=== PATIENT | female | born 1950 | race Caucasian/White ===

== ENCOUNTER → 2017-07-07 | Day surgery (SDC) | payer OTHER, MEDICARE ==
[2017-06-30 11:54] VITALS: Ht 158.8 cm; Wt 75.9 kg
[~2017-07-07] VITALS: Ht 158.8 cm; Wt 75.9 kg
[~2017-07-07] MED LIST: ASPI81CH2 PO; CLON0.5T3 PO; EpHEDrine SULFATE 50MG/5ML SYR ONE; FLUO40CA8 PO; LIDOCAINE HCL 2% 2 ML VIAL (20MG/ML) ONE; PHENYLEPHRINE HCL INJ 10 MG/ML VIAL ONE; PROPOFOL IV EMULSION 10 MG/ML 20 ML VIAL ONE; SODIUM CHLORIDE 0.9% 500ML 500 ML IV ONE; TPRSR/50 PO; ZOLP5TAB PO
--- NOTE | 2017-07-07 08:33 | Endo History and Physical ---
History & Physical Date of Service: July 07, 2017. Chief Complaint: History of polyps Referring Physician: Dr. Brcue Nicole III History of Present Illness Surveillance for colon polyps Past Surgical History Hx Cardiac Surgery: No Hx Internal Defibrillator: No Hx Pacemaker: Yes (MEDTRONIC-DUAL CHAMBER, PACE ON DEMAND-BY DR. MORALES) Hx Abdominal Surgery: Yes (LAPORATOMY FOR FIBROIDS) Hx of Implantable Prosthesis: No Hx Cancer Surgery: No Hx Thoracic Surgery: No Hx Orthopedic: No Hx Urinary Tract Surgery: No Social History Smoking Status: Former Smoker Hx Substance Use: No Hx Alcohol Use: Yes (1-2 GLASSES OF WINE A WEEK) Allergies Coded Allergies: No Known Allergies (Verified , 07/07/17) Current Medications Reported Home Medications Medications Dose Route/Sig Max Daily Dose Days Date Category Aspirin 81 Mg Chw 1 Tab PO HS 30 06/30/17 Reported Metoprolol Succinate ER (Metoprolol Succinate) 50 Mg Tabcr 1 Tab PO QPM 06/30/17 Reported Prozac (Fluoxetine HCl) 40 Mg Cap 40 Mg PO HS 06/30/17 Reported Klonopin (Clonazepam) 0.5 Mg Tab 1 Tab PO HS PRN 30 01/21/15 Reported Ambien (Zolpidem Tartrate) 5 Mg Tab 1 Tab PO HS PRN 30 01/21/15 Reported Vital Signs Weight (Kilograms): 75.91 Height (Feet): 5 Height (Inches): 2.5 Date Time Temp Pulse Resp B/P (MAP) Pulse Ox O2 Delivery O2 Flow Rate FiO2 07/07/17 08:19 36.7 56 18 145/77 (99) 97 Room Air Physical Exam General Appearance: no apparent distress Respiratory/Chest: Auscultation: breath sounds normal Cardiovascular: Heart Auscultation: RRR Abdomen: Inspection & Palpation: soft, non-distended Assessment and Plan Stable for colonoscopy
--- NOTE | 2017-07-07 09:30 | Discharge Instructions ---
Endoscopy Patient Instructions Date / Procedure(s) Performed July 07, 2017. Colonoscopy Allergy Information Coded Allergies: No Known Allergies (Verified , 07/07/17) Discharge Date / Findings July 07, 2017. Diverticulosis and polyps Medication Instructions Avoid NSAIDs for 1 week Provider Instructions Activity Restrictions - No exercising or heavy lifting for 24 hours. - Do not drink alcohol the day of the procedure. - Do not drive a car or operate machinery until the day after the procedure. - Do not make any important decisions or sign important papers in 24 hours after the procedure. Following Day: - Return to full activity which may include returning to work/school. Diet Start your diet with liquids and light foods (jello, soup, juice, toast). Then eat your usual diet if not nauseated. Treatment For Common After Affects For mild abdominal pain, bloating, or excessive gas: - Rest - Eat lightly - Lie on right side Follow-Up Information Follow-up with Dr. Bruce Nicole III as scheduled Anesthesia Information What You Should Know You have had a procedure that required some medicine to reduce anxiety and discomfort. This treatment is called moderate sedation. After receiving the treatment, you may be sleepy, but you will be able to breathe on your own. The effects of the treatment may last for several hours. Follow these instructions along with Activity/Diet recommendations noted above: * Do NOT do anything where dizziness or clumsiness would be dangerous. * Rest quietly at home today, then you can be up and about tomorrow. * Have a responsible person stay with you the rest of today. * You may have had an I.V. today. If so, you may take the dressing off later today. Recommendations Call your doctor if: * Trouble breathing * Continuous vomiting for more than 24 hours * Temperature above 101 degrees * Severe abdominal pain or bloating * Pain not relieved by pain medicine ordered * There is increased drainage or redness from any incision * A large amount of rectal bleeding greater than 2-3 tablespoons. (If you had a polyp/s removed or have hemorrhoids, a small amount of blood - from the rectum is to be expected.) * You have any unanswered questions or concerns. IN THE EVENT OF A SERIOUS EMERGENCY, GO TO THE NEAREST EMERGENCY ROOM Your discharge instructions were prepared by provider Jay Collins. Patient Instructions Signature Page Aleja Tomlin Patient (or Guardian) Signature/Date: I have read and understand the instructions given to me by my caregivers. Caregiver/RN/Doctor Signature/Date: The above-named patient and/or guardian has received patient instructions on this date. + Original Patient Signature Page (only) stays with chart. Please make copy for patient.
--- NOTE | 2017-07-07 09:30 | GI REPORT ---
Patient Name: Aleja Tomlin Procedure Date: 07/07/2017 8:49 AM Date of : 1950 Admit Type: Outpatient Age: 67 Gender: Female Attending MD: Jay Collins MD Procedure: Colonoscopy Providers: Jay Collins MD Referring MD: Bruce Nicole Indications: High risk colon cancer surveillance: Personal history of colonic polyps Medicines: Monitored Anesthesia Care Complications: No immediate complications. Estimated Blood Loss: Estimated blood loss: none. Procedure: Pre-Anesthesia Assessment: - Prior to the procedure, a History and Physical was performed, and patient medications and allergies were reviewed. The patient is competent. The risks and benefits of the procedure and the sedation options and risks were discussed with the patient. All questions were answered and informed consent was obtained. Patient identification and proposed procedure were verified by the physician and the nurse in the procedure room. Mental Status Examination: alert and oriented. Airway Examination: normal oropharyngeal airway and neck mobility. Respiratory Examination: clear to auscultation. CV Examination: normal. ASA Grade Assessment: II - A patient with mild systemic disease. After reviewing the risks and benefits, the patient was deemed in satisfactory condition to undergo the procedure. The anesthesia plan was to use monitored anesthesia care (MAC). Immediately prior to administration of medications, the patient was re-assessed for adequacy to receive sedatives. The heart rate, respiratory rate, oxygen saturations, blood pressure, adequacy of pulmonary ventilation, and response to care were monitored throughout the procedure. The physical status of the patient was re-assessed after the procedure. After I obtained informed consent, the scope was passed under direct vision. Throughout the procedure, the patient's blood pressure, pulse, and oxygen saturations were monitored continuously. The scope was introduced through the anus and advanced to the terminal ileum. The colonoscopy was performed without difficulty. The patient tolerated the procedure well. The quality of the bowel preparation was good. The terminal ileum, ileocecal valve, appendiceal orifice, and rectum were photographed. Findings: The perianal and digital rectal examinations were normal. The terminal ileum appeared normal. A 5 mm polyp was found in the ascending colon. The polyp was sessile. The polyp was removed with a cold snare. Resection and retrieval were complete. Verification of patient identification for the specimen was done by the physician and nurse using the patient's name and date. A 15 mm polyp was found in the transverse colon. The polyp was sessile. The polyp was removed with a saline injection-lift technique using a hot snare. Resection and retrieval were complete. A 5 mm polyp was found in the transverse colon. The polyp was sessile. The polyp was removed with a cold snare. Resection and retrieval were complete. Two sessile polyps were found in the sigmoid colon. The polyps were 5 mm in size. These polyps were removed with a cold snare. Resection and retrieval were complete. Scattered small and large-mouthed diverticula were found in the entire colon. The retroflexed view of the distal rectum and anal verge was normal and showed no anal or rectal abnormalities. Impression: - The examined portion of the ileum was normal. - One 5 mm polyp in the ascending colon, removed with a cold snare. Resected and retrieved. - One 15 mm polyp in the transverse colon, removed using injection-lift and a hot snare. Resected and retrieved. - One 5 mm polyp in the transverse colon, removed with a cold snare. Resected and retrieved. - Two 5 mm polyps in the sigmoid colon, removed with a cold snare. Resected and retrieved. - Diverticulosis in the entire examined colon. - The distal rectum and anal verge are normal on retroflexion view. Recommendation: - Discharge patient to home. - Await pathology results. - Repeat colonoscopy for surveillance based on pathology results. - No aspirin, ibuprofen, naproxen, or other non-steroidal anti-inflammatory drugs for 1 week after polyp removal. - Return to referring physician. Jay Collins MD 07/07/2017 9:29:47 AM This report has been signed electronically. Note Initiated On: 07/07/2017 8:49 AM Number of Addenda: 0 I attest to the content of the Intraoperative Record and orders documented therein, exceptions below {[id number]}
--- NOTE | 2017-07-07 09:54 | Anesthesiology Progress Note ---
Anesthesia Post Op Note Date & Time July 07, 2017 at 09:53 Vital Signs Pain Intensity: 0 Vital Signs Past 12 Hours Date Time Temp Pulse Resp B/P (MAP) Pulse Ox O2 Delivery O2 Flow Rate FiO2 07/07/17 09:42 51 16 124/79 (94) 96 Room Air 07/07/17 09:27 63 16 100/62 (75) 95 Room Air 07/07/17 08:19 36.7 56 18 145/77 (99) 97 Room Air Notes Mental Status: alert / awake / arousable, participated in evaluation Pt Amnestic to Procedure: Yes Nausea / Vomiting: adequately controlled Pain: adequately controlled Airway Patency, RR, SpO2: stable & adequate BP & HR: stable & adequate Hydration State: stable & adequate Anesthetic Complications: no major complications apparent
[2017-07-07 09:57] VITALS: BP 138/54; PULSE 54; O2SAT 99
== END | disposition home or self-care (01) ==
LOC: C.GI 07:52
PROVIDERS: ATTEND Student in an Organized Health Care Education/Training Program
DX: Z12.11 Encounter for screening for malignant neoplasm of colon (principal); F41.9 Anxiety disorder, unspecified; F32.9 Major depressive disorder, single episode, unspecified; Z86.010 Personal history of colon polyps; Z87.891 Personal history of nicotine dependence; Z79.82 Long term (current) use of aspirin; Z95.0 Presence of cardiac pacemaker; D12.2 Benign neoplasm of ascending colon; D12.3 Benign neoplasm of transverse colon; D12.5 Benign neoplasm of sigmoid colon; K57.30 Diverticulosis of large intestine without perforation or abscess without bleeding

== ENCOUNTER → 2017-10-04 | Outpatient (CLI) | payer OTHER, MEDICARE ==
[~2017-10-04] MED LIST changes: -CLON0.5T3 PO; +CLON0.5T9 PO; -EpHEDrine SULFATE 50MG/5ML SYR ONE; -LIDOCAINE HCL 2% 2 ML VIAL (20MG/ML) ONE; -PHENYLEPHRINE HCL INJ 10 MG/ML VIAL ONE; -PROPOFOL IV EMULSION 10 MG/ML 20 ML VIAL ONE; -SODIUM CHLORIDE 0.9% 500ML 500 ML IV ONE
--- NOTE | 2017-10-05 05:34 | PAP/PSG TECHNICIAN REPORT ---
[facility] Cryptologic Support Specialist Polysomnogram Report Study name: None Report date: 10/05/2017 Study date: 10/04/2017 Referring Physician: Bruce Evans M.D. Name: MICHELLEPIERRE DOBSON SHAGUFTA Interpreting Physician: Bruce Evans M.D. Date of : 1950 Cryptologic Support Specialist: Slime Adkins RPSGT. Sex: Female Age: 67 StudyType: PSG Weight: 171 lbs Height: 67 years, Height 5' 3" Neck Circum:14inches BMI: 30.29 Medications: Calcium [id number], Clonazepam 1mg, Fluoxetine HCl 40mg, Magnesium, Metoprolol Succinate ER 50mg Zolpidem 10mg, ASA 81mg Patient History Study started on room air with no ETCO2 monitoring in room #8. 67 yr old female here tonight for a diagnostic psg. She has a history of fatigue and snoring.She has had insomnia for years.She has occasional reflux. Her ESS=12/24.Neck circ=14inches. Parameters Monitored NPSG: E1-M2, E2-M1, Fp1-M2, Fp2-M1, F3-M2, F4-M2, F4-M1, C3-M2, C4-M2, C4-M1, O1-M2, O2-M2, O2-M1, T3-M2, T4-M1, P3-M2, P4-M1, CHIN1, CHIN2, HR, EKG, Legs, PFLOW, SNOR, FLOW, CFLOW, Tidal Volume, THOR, ABDO, SpO2, PLTH, CPRESS, ETCO2 Wave, ETCO2, pH Sleep Architecture Sleep Stages Time at Lights Off 9:56:27 PM STAGES Time (min.) TST (%) Time at Lights On 5:21:27 AM Wake 108.0 -- Total Recording Time (TRT) 445.00 min. N1 42.0 12 Total Sleep Period (TSP) 421.0 min. N2 221.0 66 Total Sleep Time (TST) 337.0min. N3 27.0 8 Awake Time 108.0 min. REM 47.0 14 Wake after Sleep Onset 84.0 min. Sleep Efficiency (SE) 76 % Sleep Onset Latency (CAM) 24.0 min. Number of Stage 1 Shifts None Awakenings 28 Stage Changes 135 Number of REM periods 3 REM 47.0 14 REM Latency 273.0 min. NREM 290.0 86 Body Position Analysis Supine Right Left Side Prone Vertical Total Sleep Time (min.) 23.6 337.0 0.0 337.00 0.0 0.0 Total Sleep Time (%) 0% 100% 0% 100 0% N/A% Total Sleep Time REM (min.) 0.0 47.0 0.0 None 0.0 0.0 Total Sleep Time NREM (min.) 0.0 290.0 0.0 None 0.0 0.0 Intermittent Wake (min.) 23.6 84.4 0.0 None 0.0 0.0 Total Sleep Period (%) 0% None None None None None Arousals Myoclonus (PLM) * Events Count Index Events Count Index Spontaneous 40 7 Events Awake (PLMW) 122 67.8 Respiratory 11 2.3 Events Asleep w/ Arousal (PLMA) 48 8.5 PLM 47 9 Events Asleep w/o Arousal (PLMS) 338 60.2 Snoring 7 1 Total Asleep 386 68.7 Total 105 19 Total 508 68 Respiratory Analysis * CA OA MA CH H RERA Total Count 1 0 0 0 20 1 21 Index 0.2 0.0 0.0 0 3.6 0 3.9 Mean Duration 13.4 0.0 0.0 0.00 21.6 42.1 22.1 Longest Duration 13.4 0.0 0.0 0.00 0.0 42.1 47.2 Respiratory Event Summary Total Supine ~Supine Right Left Prone REM NREM Apneas Count 1 N/A 1 1 N/A N/A 0 1 Index 0.2 N/A 0 0.2 N/A N/A 0 0 Hypopneas (4% Desat) Count 20 N/A 20 20 N/A N/A 2 18 Index 3.6 N/A 4 3.6 N/A N/A 2.6 3.7 Apneas & All Hypopneas Count 21 N/A 21 21 N/A N/A 2 19 Index 3.7 N/A 4 4 N/A N/A 2.6 3.9 Respiratory Events (Musician Instrumental+All Hyp+RERA) Count 21 N/A 22 22 N/A N/A 2 19 Index 3.9 N/A 4 3.9 N/A N/A 2.6 4.1 Respiratory Related Arousal Count 11 N/A 13 13 N/A N/A 1 12 Index 2.3 N/A 2 2 N/A N/A 1 2 Snoring Analysis Supine Right Left Prone REM NREM Total Snore duration 7.6 min Snores count N/A 313 N/A N/A 16 297 313 Snore mean duration 1.5 Sec Snores index N/A 56 N/A N/A 20.4 61.4 55.7 TST with snoring (%) 2.2% Desaturation Event Summary: Minimum %SpO2 Event Count Mean/Min/Max Duration(sec.) Desaturation Index % Time In Bed > 90 66 23.1 / 5.3 / 60.0 28.2 31.9 86 - 90 33 21.4 / 5.3 / 48.3 6.6 67.8 81 - 85 0 N/A 0.0 0.4 76 - 80 0 N/A 0.0 0.0 71 - 75 0 N/A 0.0 0.0 66 - 70 0 N/A 0.0 0.0 61 - 65 0 N/A 0.0 0.0 56 - 60 0 N/A 0.0 0.0 51 - 55 0 N/A 0.0 0.0 < 50 0 N/A 0.0 0.0 Total REM NREM Awake <50% 0.0 min. 0.0 min. 0.0 min. 0.0 min. 51 - 60% 0.0 min. 0.0 min. 0.0 min. 0.0 min. 61 - 70% 0.0 min. 0.0 min. 0.0 min. 0.0 min. 71 - 80% 0.0 min. 0.0 min. 0.0 min. 0.0 min. 81 - 90% 299.7 min. 39.2 min. 205.0 min. 55.5 min. 91 - 100% 140.4 min. 7.8 min. 85.0 min. 47.6 min. Average 90 89 90 91 Minimum SpO2 83 83 83 85 Desaturation Event Index 9.8 3.8 6.8 21.1 # Desat. Events below 89% 48 3 25 20 Time(%) with Saturation below 89% 9.5 1.8 5.4 2.3 Time(min.) with Saturation below 89% 42.0 7.8 24.0 10.2 Heart Rate Analysis Min (bpm) Max (bpm) Average (bpm) Awake 50 67 54 NREM 50 67 54 REM 50 65 53 Overall 50 67 54 Supplemental O2 Values Minimum O2 level: None Value Start Time End Time Cryptologic Support Specialist Comments Mrs. Bobby Dobson slept in the right and supine positions. No cardiac arrhythmia noted. PLM's were noted. No bruxism noted. Snoring was noted and scored as a 1 on a scale of 1 through 5. (0=no snoring, 5=snoring loud enough to be heard through a closed door or down the carcamo way). She awoke to use the restroom 1 time during the night. She stated that she slept about the same as when at home. The final report will be interpreted and signed by a sleep physician. The completed physician report will then be placed in the patient medical record. Therapy (cm H2O) 0 TIB (min.) 445.0 TST (min.) 337.0 Sleep Onset (min.) 24.0 REM Onset From Sleep (min.) 273.0 Sleep Efficiency % 76 Wakefulness (%) 24 Wakefulness (min.) 108.0 NREM 1 (%) 12 NREM 1 (min.) 42.0 NREM 2 (%) 66 NREM 2 (min.) 221.0 NREM 3 (%) 8 NREM 3 (min.) 27.0 REM (%) 14 REM (min.) 47.0 # Arousals 105 Arousal Index 19 # Snore 313 Snore Index 55.7 AHI 3.7 AHI Supine N/A AHI Non-Supine 4 NREM AHI 3.9 REM AHI 2.6 RDI 3.9 # Obstructive Apnea 0 # Central Apnea 1 # Mixed Apnea 0 # Hypopneas 20 RERAs 1 Total Respiratory Events 23 Time Below SpO2 89% (min.) 31.8 Mean NREM SpO2 (%) 90 Mean REM SpO2 (%) 89 Mean Sleep SpO2 (%) 90 Min NREM SpO2 (%) 83 Min REM SpO2 (%) 83 Position Supine (min.) 23.6 Position Non-supine (min.) 337.0 LM Index Sleep 68.7 LM Index NREM 77.0 LM Index REM 17.9 Mean Heart Rate (bpm) 54 Min Heart Rate (bpm) 50
--- NOTE | 2017-10-07 17:00 | POLYSOMNOGRAPH REPORT ---
CLINICAL DATA: A 67-year-old female with a history of snoring, fatigue, insomnia, and daytime somnolence. Her Mcfarland sleepiness score is 12/24. SLEEP ARCHITECTURE: Total sleep period was 421 minutes. Total sleep time was 337 minutes divided between 290 minutes of non-REM sleep and 47 minutes of REM sleep. Sleep latency was 24 minutes. REM latency was 273 minutes. Sleep efficiency was 76%. Wake after sleep onset was 84 minutes. Sleep consisted of stage N1 12%, stage N2 66%, stage N3 8%, and REM 14%. AROUSAL DATA: 105 arousals were recorded for an index of 19 per hour. 47 were due to PLMs events. PERIODIC LIMB MOVEMENTS DATA: Severe PLMD was noted. There were 386 limb movements during sleep noted for an index of 68.7 per hour with arousal index of 8.5 per hour. RESPIRATORY DATA: There was no evidence of clinically significant sleep apnea seen. The AHI was 3.7. The RDI was 3.9. There was 1 central apneic episode of 13.4 seconds in duration. There were 20 hypopneic episodes with a mean duration of 21.6 seconds. There was 1 RERA of 42.1 seconds in duration. OXIMETRY DATA: Nocturnal hypoxemia was seen. Oxygen esther was 83% during REM. Mean saturation was 90%. Time below 89% was 42 minutes. EKG: Heart rates ranged from 50 to 67 beats per minute. No arrhythmias were noted. OPERATIONS AND INTELLIGENCE ASSISTANT'S COMMENTS: The patient slept in the right and supine positions. Frequent PLMs were noted. No bruxism was noted. Snoring was mild, rated 1 on a scale of 1-5. IMPRESSION: 1. No evidence of clinically significant sleep apnea/hypopnea. Nocturnal hypoxemia was seen. 2. Severe periodic limb movement disorder. RECOMMENDATIONS: The patient would benefit from treatment of PLMD if felt to be clinically significant. There is no need for CPAP or BiPAP. Nocturnal oxygen could be considered. [facility]
== END | disposition home or self-care (01) ==
LOC: C.NEUR 21:00
PROVIDERS: ATTEND Internal Medicine Pulmonary Disease
DX: G47.9 Sleep disorder, unspecified (principal); R53.83 Other fatigue; R06.83 Snoring